=== PATIENT | male | born 1985 | race African-American/Black ===

== ENCOUNTER 2016-09-12 05:43 | Outpatient (CLI) | payer MEDICAID | END 2016-09-12 05:44 | disposition critical access hospital (66) | LOC: EMS 05:43 | PROVIDERS: ATTEND Surgery | DX: R68.0 Hypothermia, not associated with low environmental temperature (principal) | CPT/HCPCS: A0425; A0429 ==

== ENCOUNTER 2016-09-12 06:20 | Emergency (ER) | payer MEDICAID ==
[2016-09-12 06:42] LABS: BASOPHILS # (AUTO) 0.1 10^3/uL (0.0-0.1); BASOPHILS % (AUTO) 0.4 %; EOSINOPHILS % (AUTO) 0.3 %; HCT - HEMATOCRIT 47.7 % (42.0-52.0); HGB - HEMOGLOBIN 15.4 g/dL (14.0-18.0); LYMPHOCYTES # (AUTO) 2.7 10^3/uL (1.5-3.5); LYMPHOCYTES % (AUTO) 19.8 %; MEAN CORPUSCULAR HEMOGLOBIN 26.8 pg (27.0-31.0); MEAN CORPUSCULAR HGB CONC 32.3 g/dL (32.0-36.0); MEAN CORPUSCULAR VOLUME 83.1 fL (80.0-94.0); MEAN PLATELET VOLUME 8.1 fL (7.4-11.4); MONOCYTES # (AUTO) 0.9 10^3/uL (0.0-1.0); MONOCYTES % (AUTO) 6.8 %; NEUTROPHILS # (AUTO) 9.8 10^3/uL (1.5-6.6); NEUTROPHILS % (AUTO) 72.7 %; RED BLOOD COUNT 5.74 10^6/uL (4.70-6.10); RED CELL DISTRIBUTION WIDTH 15.7 % (12.0-15.0); UNCORRECTED WHITE BLOOD COUNT 13.5 x10^3/uL; WHITE BLOOD COUNT 13.5 x10^3/uL (4.8-10.8)
[2016-09-12 06:59] LABS: ALBUMIN/GLOBULIN RATIO 1.3 (1.0-2.2); BILIRUBIN,TOTAL 1.1 mg/dL (0.2-1.0); BUN - BLOOD UREA NITROGEN 14 mg/dL (6-20); CALCIUM 9.4 mg/dL (8.5-10.3); CARBON DIOXIDE - CO2 28 mmol/L (21-32); CHLORIDE 97 mmol/L (101-111); CREATININE 1.1 mg/dL (0.6-1.2); GFR - MDRD 93 (>89); GLUCOSE 89 mg/dL (70-100); LIPASE 15 U/L (22-51); SALICYLATE < 6.0 mg/dL; SODIUM 136 mmol/L (135-145); TOTAL PROTEIN 9.6 g/dL (6.7-8.2)
[2016-09-12 07:00] LABS: ACETAMINOPHEN < 10 ug/mL (10-30)
[2016-09-12] MEDS ORDERED: SODIUM CHLORIDE 0.9% 1,000 ML IV ONE (07:00)
[2016-09-12 07:03] VITALS: BP 162/105
[2016-09-12 07:25] LABS: BILIRUBIN,URINE NEGATIVE (NEGATIVE)
[2016-09-12 07:34] LABS: UA w/ MICROSCOPIC CHARGE YES
--- NOTE | 2016-09-12 07:42 | ED Physician Documentation ---
PD HPI ALTERED MENTAL STATUS - Stated complaint Stated Complaint: CONFUSED - Chief complaint Chief Complaint: General - History obtained from History obtained from: Patient, EMS - History of Present Illness Timing - onset: Today Timing - details: Gradual onset Quality / character: Less responsive, Confused, Disoriented, Memory Loss Associated symptoms: Other (hypothermia) Basline status: Alert and oriented X 3 Similar symptoms before: Has not had sx before Recently seen: Not recently seen - Additional information Additional information: Patient is a 31 year old male with no significant past medical history who was brought in by ems for altered mental status and hypothermia. According to patient and ems patient was found down by the [facility] terminal. Patient's clothes were wet and he was confused. Patient states that he remembers going to visit his kids yesterday, and states that afterwards he might have had one drink but he doesn't remember taking any drugs. patient states that it might have happened if he met up with some old friends. Patient states that he doesn' t remember coming back across the [facility] to [facility]. ems states that when they picked up a patient he was shivering and confused. Upon arrival in the emergency department patient was awake, and alert but shivering with a core temperature of 92 Review of Systems Constitutional: reports: Chills Eyes: denies: Loss of vision, Photophobia Ears: denies: Ear pain, Drainage/discharge Nose: denies: Rhinorrhea / runny nose, Congestion Throat: denies: Dental pain / toothache, Oral lesions / sores Cardiac: denies: Chest pain / pressure, Palpitations GI: denies: Abdominal Pain, Nausea, Vomiting : denies: Dysuria, Frequency, Hesitancy Skin: denies: Rash, Lesions Musculoskeletal: denies: Neck pain, Back pain, Extremity pain, Joint pain Neurologic: denies: Generalized weakness, Focal weakness, Numbness Psychiatric: reports: Anxiety. denies: Depressed, Suicidal Immunocompromised: denies: Immunocompromised PD PAST MEDICAL HISTORY - Past Medical History Past Medical History: No Cardiovascular: None Respiratory: None Endocrine/Autoimmune: None GI: None : None HEENT: None Psych: None Musculoskeletal: None Derm: None - Past Surgical History Past Surgical History: Yes General: Appendectomy, Other - Present Medications Home Medications: Ambulatory Orders Medication Instructions Recorded Confirmed No Known Home Medications [No 09/12/16 09/12/16 Known Home Medications] - Allergies Allergies/Adverse Reactions: Allergies Allergy/AdvReac Type Severity Reaction Status Date / Time No Known Drug Allergies Allergy Verified 09/12/16 06:55 - Social History Does the pt smoke?: Yes Smoking Status: Current every day smoker Does the pt drink ETOH?: Yes Does the pt have substance abuse?: No - Immunizations Immunizations are current?: No - POLST Patient has POLST: No PD ED PE NORMAL - General General: Alert and oriented X 3, Well developed/nourished - HEENT HEENT: PERRL, Pharynx benign - Neck Neck: Supple, no meningeal sign, No JVD - Cardiac Cardiac: RRR, No murmur - Respiratory Respiratory: No respiratory distress, Clear bilaterally - Abdomen Abdomen: Soft, Non tender, Non distended - Derm Derm: Normal color - Extremities Extremities: No deformity, No tenderness to palpate, No edema, No calf tenderness / cord - Neuro Neuro: Alert and oriented X 3, No motor deficit, No sensory deficit, Normal speech - Psych Psych: Normal mood, Normal affect PD ED PE EXPANDED - General General: Alert, Other (cold and shivering) Results - Vitals Vitals: Vital Signs - 24 hr 09/12/16 09/12/16 09/12/16 06:21 06:48 07:02 Temperature 33.6 C L Heart Rate 95 89 86 Respiratory 20 12 16 Rate Blood Pressure 142/111 H 214/202 H 162/105 H O2 Saturation 99 99 99 09/12/16 07:23 Temperature 36.5 C Heart Rate Respiratory Rate Blood Pressure O2 Saturation Oxygen O2 Source Room air - Labs Labs: Laboratory Tests 09/12/16 09/12/16 09/12/16 06:36 06:36 06:36 WBC 13.5 H RBC 5.74 Hgb 15.4 Hct 47.7 MCV 83.1 MCH 26.8 L MCHC 32.3 RDW 15.7 H Plt Count 260 MPV 8.1 Neut # 9.8 H Lymph # 2.7 Ward # 0.9 Eos # 0.0 Baso # 0.1 Absolute Nucleated RBC 0.00 Nucleated RBCs 0.0 Sodium 136 Potassium 4.0 Chloride 97 L Carbon Dioxide 28 Anion Gap 11.0 BUN 14 Creatinine 1.1 Estimated GFR (MDRD) 93 Glucose 89 Calcium 9.4 Total Bilirubin 1.1 H AST 35 ALT 40 Alkaline Phosphatase 57 Total Creatine Kinase 771 H Total Protein 9.6 H Albumin 5.4 Globulin 4.2 Albumin/Globulin Ratio 1.3 Lipase 15 L TSH 3.20 Urine Color Urine Clarity Urine pH Ur Specific [place] Urine Protein Urine Glucose (UA) Urine Ketones Urine Occult Blood Urine Nitrite Urine Bilirubin Urine Urobilinogen Ur Leukocyte Esterase Ur Microscopic Review Urine Culture Comments Salicylates < 6.0 Acetaminophen < 10 L Ethyl Alcohol < 5.0 09/12/16 07:08 WBC RBC Hgb Hct MCV MCH MCHC RDW Plt Count MPV Neut # Lymph # Ward # Eos # Baso # Absolute Nucleated RBC Nucleated RBCs Sodium Potassium Chloride Carbon Dioxide Anion Gap BUN Creatinine Estimated GFR (MDRD) Glucose Calcium Total Bilirubin AST ALT Alkaline Phosphatase Total Creatine Kinase Total Protein Albumin Globulin Albumin/Globulin Ratio Lipase TSH Urine Color YELLOW Urine Clarity CLEAR Urine pH 6.0 Ur Specific [place] 1.025 Urine Protein 100 H Urine Glucose (UA) NEGATIVE Urine Ketones 15 H Urine Occult Blood MODERATE H Urine Nitrite NEGATIVE Urine Bilirubin NEGATIVE Urine Urobilinogen 0.2 (NORMAL) Ur Leukocyte Esterase NEGATIVE Ur Microscopic Review INDICATED Urine Culture Comments Not Reportable Salicylates Acetaminophen Ethyl Alcohol PD MEDICAL DECISION MAKING - ED course Complexity details: reviewed results, re-evaluated patient, considered differential, d/w patient ED course: Patient was seen and examined at bedside. IV access was gained and labs were drawn. Patient was treated with warmed saline and a marcelino hugger was placed on the patient. After the first liter of fluid the temperature was rechecked and it had gone from 92 to 97. Patient was treated with a second liter of fluid. Patient was awake, alert, and oriented. patient was in no distress. Patient required no further work up at this time and was stable for discharge Departure - Departure Disposition: Home, Self Care Clinical Impression: Hypothermia Condition: Good Instructions: ED Hypothermia Prevention Follow-Up: primary,care provider [Other] - As Needed Comments: Your symptoms today were caused by severe hypothermia. It can be life threatening and you were trista you were found. You need to be careful with the consumption of drugs and alcohol as a means of dealing with your stress. If you are feeling stressed and anxious on a more regular basis you should follow up wiht your pmd and seek the help of a counselor. You may return to the emergency department at any time for new, worsening or uncontrollable symptoms.
[2016-09-12 08:01] LABS: UR CULTURE IF IND NOT INDICATED; WBC,URINE 0-3 /HPF (0-3)
== END 2016-09-12 08:10 | disposition home or self-care (01) ==
LOC: ED 06:20
DX: T68.XXXA Hypothermia, initial encounter (principal); F17.200 Nicotine dependence, unspecified, uncomplicated
CPT/HCPCS: 36415; 80053; 80306; 80307; 80320; 80329; 81001; 81003; 82550; 83690; 84443; 85025; 87086; 99284